=== PATIENT | male | born 1940 | race Asian ===

== ENCOUNTER 2016-10-14 11:23 | Inpatient (IN) | payer OTHER, MEDICARE ==
--- NOTE | 2016-10-14 11:37 | CPEKG ---
Heart Rate: 105 RR Interval: 571 P-R Interval: 140 QRSD Interval: 82 QT Interval: 368 QTC Interval: 487 P [place]: 52 QRS [place]: 26 T Wave [place]: -8 EKG Severity - ABNORMAL ECG - EKG Impression: SINUS TACHYCARDIA EKG Impression: INFERIOR INFARCT, AGE INDETERMINATE EKG Impression: ANTEROLATERAL INFARCT, AGE INDETERMINATE EKG Impression: BORDERLINE PROLONGED QT INTERVAL Electronically Signed By: Devin Covarrubias 14-Oct-2016 15:39:10
--- NOTE | 2016-10-14 12:03 | EDPHY ---
H & P Time Seen by Provider: 10/14/16 11:38 HPI/ROS: Chief complaint. Syncope, seizure HPI. 76-year-old male presents emergency department by EMS after having a syncopal episode while [place] [employer] He was crossing the finish line. He had been pushing himself to get a good time. The next thing he knew was lying on the ground with EMS. He had no preceding chest discomfort shortness of breath or abdominal pain. He does not recall the episode. His right facial swelling and abrasion to right knee. He also tells me he felt well during the run. Per EMS blood pressure has been low. He has a history of hypertension and diabetes. No previous syncope. He has bloody nose. No neck pain. No visual change ROS Constitutional. no fever/chills, no weakness Eyes. Swelling around right eye ENT. Bilateral epistaxis without septal hematoma. No oral trauma Cardiovascular. no chest pain Respiratory. no shortness of breath, no cough Abdominal. no abdominal pain, no nausea/vomiting, no diarrhea . no problems urinating facial swelling MS. no calf pain/swelling, no neck/back pain, no joint pain Skin. no rash Lymph. no swollen glands Neuro. Syncope Past Medical/Surgical History: Past medical history hypertension, diabetes Social History: , nonsmoker no alcohol Smoking Status: Never smoked Physical Exam: General Appearance: Alert well-developed male mild distress vital signs significant for heart rate 103 and blood pressure 80/ 58 Eyes: Pupils equal round reactive. Right periorbital hematoma. ENT, no hemotympanum or Stokes sign. No septal hematoma. No oral pharyngeal trauma. Respiratory: There are no retractions, lungs are clear to auscultation. Cardiovascular: Regular rate and rhythm. Gastrointestinal: Abdomen is soft and nontender, no masses, bowel sounds normal. Neurological: Awake and alert, sensory and motor exams grossly normal. Skin: Warm and dry, no rashes. Musculoskeletal: Neck is supple nontender. Extremities abrasion right knee Psychiatric: Patient is oriented X 3, there is no agitation. Constitutional: Initial Vital Signs Temperature (C) 36.6 C 10/14/16 11:25 Heart Rate 103 H 10/14/16 11:25 Respiratory Rate 16 10/14/16 11:25 Blood Pressure 80/58 L 10/14/16 11:25 O2 Sat (%) 96 10/14/16 11:25 O2 Delivery Mode Room Air Allergies/Adverse Reactions: No Known Allergies Allergy (Unverified 10/14/16 11:29) Home Medications: Medication Instructions Recorded Fenofibrate Nanocrystallized 145 mg PO HS 10/14/16 [Fenofibrate] Ibuprofen [Motrin (*)] 200 mg PO DAILY PRN 10/14/16 Lisinopril [Lisinopril] 10 mg PO HS 10/14/16 Pravastatin Sodium [Pravastatin 20 mg PO HS 10/14/16 Sodium] Medical Decision Making - Diagnostics EKG Interpretation: EKG interpreted by me shows sinus tachycardia. Normal interval. Possible old inferior ND. No significant ST elevation or depression. No arrhythmia. Rate 105 Imaging Results: Imaging Impressions Chest X-Ray 10/14/16 12:20 Impression: Clear lungs. Negative portable chest. Head CT 10/14/16 12:21 Impression: 1. No acute intracranial hemorrhage or skull fracture. 2. Right orbital floor fracture (no inferior rectus muscle entrapment). 3. Cerebral atrophy. Findings discussed with Emergency Department physician, Dr. Devin Covarrubias on October 14, 2016 at 1305 hours. Chest x-ray interpreted by me is normal CT head shows no evidence of skull fracture or intracranial bleeding. Patient has right orbital floor fracture with subcutaneous emphysema Procedures: IV normal saline patient given 2 L of saline, monitor ED Course/Re-evaluation: 12:55 p.m. blood pressure is 100/73 Re-evaluation 1:20 p.m.--patient is stable. Blood pressure improved with systolic of 102. Patient, his and I discussed imaging study results, lab an EKG findings. We discussed treatment plan including recommendation for admission. They expressed understanding and agreement I have consulted and discussed the case with Dr. Olivia, ENT, who will see the patient in the hospital I have consulted and discussed the case with Dr. Coyle, hospitalist who agrees to the admission will see the patient in the emergency department. Differential Diagnosis: Patient hypotensive and had syncope without prodrome symptoms. I have considered arrhythmia, CVA. I also considered trauma to his face from his fall and he has a right orbital floor fracture. This could be dehydration syncope or arrhythmia and acute coronary syndrome - Data Points Laboratory Results: Laboratory Results 10/14/16 11:25 10/14/16 11:25 10/14/16 10/14/16 10/14/16 11:25 11:25 11:25 WBC 11.49 10^3/uL H 10^3/uL (3.80-9.50) RBC 4.78 10^6/uL 10^6/uL (4.40-6.38) Hgb 15.2 g/dL g/dL (13.7-17.5) Hct 45.6 % % (40.0-51.0) MCV 95.4 fL fL (81.5-99.8) MCH 31.8 pg pg (27.9-34.1) MCHC 33.3 g/dL g/dL (32.4-36.7) RDW 12.1 % % (11.5-15.2) Plt Count 323 10^3/uL 10^3/uL (150-400) MPV 9.8 fL fL (8.7-11.7) Neut % (Auto) 49.0 % % (39.3-74.2) Lymph % (Auto) 37.2 % % (15.0-45.0) Archer % (Auto) 8.4 % % (4.5-13.0) Eos % (Auto) 3.8 % % (0.6-7.6) Baso % (Auto) 1.0 % % (0.3-1.7) Nucleat RBC Rel Count 0.0 % % (0.0-0.2) Absolute Neuts (auto) 5.62 10^3/uL 10^3/uL (1.70-6.50) Absolute Lymphs (auto) 4.27 10^3/uL H 10^3/uL (1.00-3.00) Absolute Monos (auto) 0.97 10^3/uL H 10^3/uL (0.30-0.80) Absolute Eos (auto) 0.44 10^3/uL H 10^3/uL (0.03-0.40) Absolute Basos (auto) 0.12 10^3/uL H 10^3/uL (0.02-0.10) Absolute Nucleated RBC 0.00 10^3/uL 10^3/uL (0-0.01) Immature Gran % 0.6 % % (0.0-1.1) Immature Gran # 0.07 10^3/uL 10^3/uL (0.00-0.10) PT 13.1 SEC SEC (12.0-15.0) INR 1.00 (0.83-1.16) APTT 24.5 SEC SEC (23.0-38.0) Sodium 139 mEq/L mEq/L (134-144) Potassium 5.2 mEq/L mEq/L (3.5-5.2) Chloride 102 mEq/L mEq/L (97-110) Carbon Dioxide 17 mEq/l L mEq/l (22-31) Anion Gap 20 mEq/L H mEq/L (8-16) BUN 29 mg/dL H mg/dL (7-23) Creatinine 1.7 mg/dL H mg/dL (0.7-1.3) Estimated GFR 39 Glucose 158 mg/dL H mg/dL (70-100) Calcium 10.4 mg/dL mg/dL (8.5-10.4) Troponin I 0.020 ng/mL ng/mL (0-0.034) Medications Given: Discontinued Medications Amoxicillin/Clavulanate Potassium (Augmentin 875mg) 875 mg PO EDNOW ONE PRN Reason: Protocol Stop: 10/14/16 13:45 Last Admin: 10/14/16 14:21 Dose: 875 mg Sodium Chloride (Ns) 1,000 mls @ 0 mls/hr IV ONCE ONE PRN Reason: Wide Open Stop: 10/14/16 12:21 Last Admin: 10/14/16 12:28 Dose: 1,000 mls Departure - Departure Disposition: [facility] Inpatient Acute Clinical Impression: Syncope and collapse, Facial fracture due to fall Hypotension Qualifiers: Hypotension type: unspecified hypotension type Qualified Code(s): I95.9 - Hypotension, unspecified Condition: Fair
[2016-10-14] MEDS ORDERED: NS 1,000 ML IV ONE (12:20)
[2016-10-14 12:27] LABS: % IMMATURE GRANULYOCYTES 0.6 % (0.0-1.1); ABSOLUTE IMMATURE GRANULOCYTES 0.07 10^3/uL (0.00-0.10); ADD DIFF? NO; ADD MORPH? NO; ADD SCAN? NO; ATYPICAL LYMPHOCYTE FLAG 0 (0-99); FRAGMENT RBC FLAG 0 (0-99); HEMATOCRIT 45.6 % (40.0-51.0); HEMOGLOBIN 15.2 g/dL (13.7-17.5); LEFT SHIFT FLG 0 (0-99); LIPEMIA HEMOLYSIS FLAG 80 (0-99); MEAN CELL HEMOGLOBIN 31.8 pg (27.9-34.1); MEAN CELL HEMOGLOBIN CONCENTR. 33.3 g/dL (32.4-36.7); MEAN CELL VOLUME 95.4 fL (81.5-99.8); MEAN PLATELET VOLUME 9.8 fL (8.7-11.7); PLATELET CLUMPS FLAG 0 (0-99); PLATELET COUNT 323 10^3/uL (150-400); RED BLOOD CELL COUNT 4.78 10^6/uL (4.40-6.38); RED CELL DISTRIBUTION WIDTH 12.1 % (11.5-15.2)
[2016-10-14 12:30] LABS: PROTIME(PATIENT) 13.1 SEC (12.0-15.0)
[2016-10-14 12:31] LABS: APTT 24.5 SEC (23.0-38.0)
[2016-10-14 12:32] LABS: ANION GAP 20 mEq/L (8-16); CALCIUM 10.4 mg/dL (8.5-10.4); CARBON DIOXIDE 17 mEq/l (22-31); CHLORIDE 102 mEq/L (97-110); CREATININE 1.7 mg/dL (0.7-1.3); GLOMERULAR FILTRATION RATE 39; GLUCOSE 158 mg/dL (70-100); POTASSIUM 5.2 mEq/L (3.5-5.2); SODIUM 139 mEq/L (134-144)
[2016-10-14] MEDS ORDERED: AMOXICILLIN/CLAVULANATE POT 875/125 MG TAB PO ONE (13:44)
[2016-10-14] MEDS ORDERED: ACETAMINOPHEN 325 MG TAB PO PRN (14:27)
[2016-10-14] MEDS ORDERED: ONDANSETRON DISINTEGRATING 4 MG TAB PO PRN (14:27)
[2016-10-14] MEDS ORDERED: NS 1,000 ML IV SCH (14:30)
--- NOTE | 2016-10-14 15:00 | GHP ---
[f rep st] HISTORY AND PHYSICAL DATE OF ADMISSION: 10/14/2016 CHIEF COMPLAINT: Syncope. HISTORY OF PRESENT ILLNESS: This is a 76-year-old male with a history of hypertension and hyperlipi demia. He was running in [place] [employer] and pushed himself quite hard at the end to improve his time. Right when he passed the finish line, he had a syncopal episode and hit his face. He does h ave an orbital blowout fracture on the right. The patient denies any chest pain. He denies any pal pitations prior to that or even in the past. He is denying any shortness of breath. His blood pres sure was low when he came in and is now better. REVIEW OF SYSTEMS: A 10-point review of systems was obtained and other than stated above was negati ve. PAST MEDICAL HISTORY: Hypertension, hyperlipidemia. MEDICATIONS: Lisinopril, TriCor, pravastatin. SOCIAL HISTORY: No smoking. Occasional alcohol. He is retired. FAMILY HISTORY: No early history of coronary artery disease. PHYSICAL EXAM: VITAL SIGNS: Afebrile. Blood pressure was /58 with a heart rate 103, it is down to 110s/70 with heart rate in the 70s. GENERAL: The patient is well-developed, no apparent distress. HEENT: Nonicteric sclerae. Extraocular muscles intact. He does have right orbital swe lling. Dry mucous membranes. NECK: Supple. No thyromegaly. LUNGS: Good effort. Clear to auscu ltation bilaterally. CARDIOVASCULAR: Regular rate and rhythm. No murmurs or gallops. ABDOMEN: P ositive bowel sounds. Soft, nontender, nondistended. No hepatosplenomegaly. EXTREMITIES: No club joan, cyanosis, or edema. SKIN: Without rash. Dry, intact. NEUROLOGIC: Moving all 4 extremities equally. PSYCH: Normal mood and affect. LABS: White count slightly elevated at 11. Sodium 139, potassium 5.2, BUN 29, creatinine 1.7, anio n gap of 20. EKG, personally reviewed and interpreted, shows inferior Q-waves and sinus tachycardia. CT scan of the head shows orbital blowout fracture on the right. Chest x-ray, personally reviewed and interpreted, is clear. ASSESSMENT AND PLAN: This is a 76-year-old male presenting with syncopal episode after 10 K run. 1. Syncope. This is probably due to dehydration and overexertion. His labs and vital signs are co nsistent with dehydration. We will continue with IV fluids. He does have Q-waves on the EKG. We w ill probably check another troponin in the morning, although it would be hard to interpret after sig nificant exertion. 2. Hypertension. We will hold his lisinopril. 3. Hyperlipidemia. 4. Right orbital blowout fracture. We will continue Augmentin. He can follow up with ENT. /[id number]/MODL
[2016-10-15 05:01] LABS: % IMMATURE GRANULYOCYTES 0.5 % (0.0-1.1); ABSOLUTE IMMATURE GRANULOCYTES 0.04 10^3/uL (0.00-0.10); ADD DIFF? NO; ADD MORPH? NO; ADD SCAN? NO; ATYPICAL LYMPHOCYTE FLAG 0 (0-99); FRAGMENT RBC FLAG 0 (0-99); HEMATOCRIT 35.8 % (40.0-51.0); HEMOGLOBIN 12.1 g/dL (13.7-17.5); LEFT SHIFT FLG 0 (0-99); LIPEMIA HEMOLYSIS FLAG 90 (0-99); MEAN CELL HEMOGLOBIN 32.4 pg (27.9-34.1); MEAN CELL HEMOGLOBIN CONCENTR. 33.8 g/dL (32.4-36.7); MEAN PLATELET VOLUME 9.4 fL (8.7-11.7); PLATELET CLUMPS FLAG 0 (0-99); PLATELET COUNT 200 10^3/uL (150-400); RED BLOOD CELL COUNT 3.73 10^6/uL (4.40-6.38); RED CELL DISTRIBUTION WIDTH 12.4 % (11.5-15.2)
[2016-10-15 05:02] LABS: ALANINE AMINOTRANSFERASE 39 IU/L (21-72); ALBUMIN 3.4 g/dL (3.5-5.0); ALKALINE PHOSPHATASE 31 IU/L (38-126); ANION GAP 7 mEq/L (8-16); ASPARTATE AMINOTRANSFERASE 52 IU/L (17-59); BILIRUBIN,TOTAL 1.1 mg/dL (0.1-1.4); CALCIUM 8.5 mg/dL (8.5-10.4); CARBON DIOXIDE 22 mEq/l (22-31); CHLORIDE 109 mEq/L (97-110); GLOMERULAR FILTRATION RATE > 60; GLUCOSE 111 mg/dL (70-100); POTASSIUM 4.8 mEq/L (3.5-5.2); SODIUM 138 mEq/L (134-144); TOTAL PROTEIN 6.1 g/dL (6.3-8.2)
[2016-10-15 05:13] LABS: TROPONIN I 0.696 ng/mL (0-0.034)
[2016-10-15] MEDS: AMOXICILLIN/CLAVULANATE POT 875/125 MG TAB PO SCH ×2 (10:00→20:46)
--- NOTE | 2016-10-15 12:07 | GCON ---
[f rep st] CONSULTATION HISTORY OF PRESENT ILLNESS: This is a 76-year-old male with a history of hypertension and hyperlipi demia. He was [place] and pushed himself quite hard at the end to improve hi s time. Right as he was crossing the finish line he had a syncopal episode on his face. The patien t underwent a CT scan on admission to the emergency room and was found to have a right orbital floor fracture. He was admitted for workup of his syncope. ENT is consulted for management of his right orbital floor fracture. The patient denies any double vision. At this point, he has no pain, he h as no bleeding. No facial numbness. PHYSICAL EXAMINATION: GENERAL: A 76-year-old male, in no acute distress, sitting up at the bedside . HEAD AND FACE: He does have mild edema infraorbitally on the right. Extraocular movements are i ntact. No septal hematoma. IMAGING PROCEDURE: CT scan of the head was reviewed with the patient. It does show a blowout fract ure of the orbital floor on the right. There is no entrapment. ASSESSMENT AND PLAN: This is a 76-year-old male who presents with a syncopal episode as well as fac ial trauma. He sustained a right orbital floor fracture. Dr. Olivia discussed the options with th e patient, which do include conservative management at this time versus operative intervention. The patient is traveling to [place] in several days and he will decide if he wants to intervene prio r to that. The patient was instructed to call our office, , on discharge in order to se t up followup. The patient will either follow up prior to his trip to [place] and delay it, or f ollow up after his trip. We did discuss with the patient the risk of scar formation causing muscle entrapment, causing vertical gaze diplopia. The patient understands treatment options and he will c all our office to follow up. Thank you so much for allowing us to participate in the care of this patient. If you have any furth er questions, please do not hesitate to contact our office. Patient was seen and examined by myself, as well as Dr. Olivia. Dr. Olivia does agree [facility] the [facility] and plan. /[id number]/MODL
--- NOTE | 2016-10-15 12:46 | PDCARST ---
CAR Stress Test Results Type of Stress Test: nuclear TM stress test Indication: syncope Description of Procedure: After informed consent was obtained, pt was exercised according to Kenneth Protocol. Monitoring was performed with standard stress pump tester electrode placement. Vital signs were monitored according to protocol throughout the procedure. STRESS EKG AND HEMODYNAMIC DATA. Exercise time: 4: 18 min. This is equivalent to: 5.5 METS. Resting heart rate: 75 bpm. Resting blood pressure: 140/74 mmHg. Resting O2 saturation: 97%. Peak heart rate: 140 bpm. This is 96% of age predicted maximum heart rate response. Peak blood pressure: 160/100 mmHg. Arrhythmias: rare PVCs in recovery. Reason for termination: The test was stopped due to ECG changes. Symptoms: The patient experienced no typical symptoms of angina during stress or recovery. STRESS TEST ANALYSIS. Baseline ECG: SR with ant/lat Qs. Stress ECG: SR with 2 mm horizontal STD. exercise induced ischemic ECG changes: Yes. Rhythm: rare PVCs in recovery. Blood pressure: acceptable blood pressure response to exercise. Exercise tolerance: The patient has decreased exercise tolerance adjusted for age and gender. Symptoms: dyspnea on exertion Impression: IMPRESSIONS: Stress ECG highly suggestive of ischemia. The Krishnamurthy Treadmill Score is -6 (intermediate risk) Conclusion: Cardiology will be consulting and likely pt will require invasive evaluation.
[2016-10-15] MEDS ORDERED: HEPARIN 10,000 UNIT/10 ML MDV IVP PRN (14:02)
[2016-10-15] MEDS ORDERED: HEPARIN 10,000 UNIT/10 ML MDV IVP ONE (14:02)
[2016-10-15] MEDS ORDERED: HEPARIN/DEXTROSE 500 ML IV SCH (14:15)
[2016-10-15 14:34] LABS: % IMMATURE GRANULYOCYTES 0.5 % (0.0-1.1); ABSOLUTE IMMATURE GRANULOCYTES 0.04 10^3/uL (0.00-0.10); ADD DIFF? NO; ADD MORPH? NO; ADD SCAN? NO; ATYPICAL LYMPHOCYTE FLAG 0 (0-99); FRAGMENT RBC FLAG 0 (0-99); HEMATOCRIT 41.3 % (40.0-51.0); HEMOGLOBIN 13.7 g/dL (13.7-17.5); LEFT SHIFT FLG 0 (0-99); LIPEMIA HEMOLYSIS FLAG 80 (0-99); MEAN CELL HEMOGLOBIN 32.1 pg (27.9-34.1); MEAN CELL HEMOGLOBIN CONCENTR. 33.2 g/dL (32.4-36.7); MEAN CELL VOLUME 96.7 fL (81.5-99.8); MEAN PLATELET VOLUME 9.4 fL (8.7-11.7); PLATELET CLUMPS FLAG 10 (0-99); PLATELET COUNT 218 10^3/uL (150-400); RED BLOOD CELL COUNT 4.27 10^6/uL (4.40-6.38); RED CELL DISTRIBUTION WIDTH 12.4 % (11.5-15.2)
--- NOTE | 2016-10-15 14:35 | HOSPPROG ---
Hospitalist Progress Note Assessment/Plan: * syncope * Probably related to dehydration but now appears to have cardiac disease * mild troponin elevation with inferior Q-waves * Had stress test this morning which he failed. There is some ischemia on the images as well * Will be going to tree [employer] I believe today * hypertension * Probably will need to start beta-aljeandra and so will not restart lisinopril which should probably be started at a lower dose Subjective: Feels pretty good. No chest pain Objective: Vital Signs Temp Pulse Resp BP Pulse Ox 36.6 C 67 16 144/80 H 97 10/15/16 07:32 10/15/16 07:32 10/15/16 07:32 10/15/16 07:32 10/15/16 07:32 Laboratory Results 10/15/16 04:20 10/14/16 10/15/16 10/16/16 05:59 05:59 05:59 Intake Total 3180 Balance 3180 PT 13.1 SEC (12.0-15.0) 10/14/16 11:25 INR 1.00 (0.83-1.16) 10/14/16 11:25 Discussed with Cardiology - Physical Exam Constitutional: no apparent distress, appears nourished, not in pain Eyes: anicteric sclera, EOMI Ears, Nose, Mouth, Throat: moist mucous membranes, hearing normal Cardiovascular: regular rate and rhythym, no murmur, rub, or gallop Respiratory: no respiratory distress, no rales or rhonchi, clear to auscultation Gastrointestinal: normoactive bowel sounds, soft, non-tender abdomen, no palpable masses Skin: warm Neurologic: AAOx3 Psychiatric: interacting appropriately, not anxious, not encephalopathic, thought process linear ICD10 Worksheet Patient Problems: Problems Problem Status Onset Facial fracture due to fall Acute Hypotension Acute Syncope and collapse Acute
[2016-10-15 14:43] LABS: INR 1.03 (0.83-1.16); PROTIME(PATIENT) 13.4 SEC (12.0-15.0)
[2016-10-15 14:44] LABS: APTT 25.8 SEC (23.0-38.0)
--- NOTE | 2016-10-15 15:07 | GCON ---
[f rep st] CONSULTATION CARDIOVASCULAR CONSULTATION CHIEF COMPLAINT: Syncope. The patient passed out while running the [email or web address]. He normally runs the [email or web address] in about 16-minute miles. He noted he was a little bit faster t [place] normal by 10, 15, 20 seconds per mile, and he decided to try to keep going at that pace, which [place] did. When he got to the stadium and was going to try to sprint for the last trip around the stadi um, he blacked out at the finish line. He also felt like he could not increase his pace at the [employer] the way he normally does. He had no chest pain or shortness of breath. No pleuritic chest pain. No lightheadedness, dizziness. No stiff neck, sore throat, photophobia. No trauma of the head, neck, or chest except when he passed out. He had no trouble before the race. He did train for the race, had even run 6 miles once and did fine with that. He has not had any episodes of chest discomfort. He has had no upper respiratory tract symptoms. N o cough, no sputum production. No arthralgias, fevers, chills. No nausea, vomiting, diarrhea, or constipation. No symptoms of rigors. He has had no history of rheumatic disease, claudication, or cerebrovascular disease. No hemoptysis or tuberculosis. CARDIAC RISK FACTORS: Positive for hypertension, diabetes mellitus, and hyperlipidemia. Cardiac risk factors negative for hyperuricemia, smoking, family history of premature coronary arter y disease, known coronary artery disease or obesity. PAST MEDICAL HISTORY: REVIEW OF SYSTEMS: A 12-point review of systems was negative except as noted here. 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 He had polio and it affected his right side. His right hand is more affected than the right lower extremity. FAMILY HISTORY: No family history of premature coronary artery disease. No history of unexplained sudden at a young age. SOCIAL HISTORY: He was born in [place], [place]. He went to high school near [facility]. 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 They have 1 child, a daughter, in . [place] nt[place], they have been in [place] for 4 years. 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 He had been in [place] once before doing the same work. He exercises on a regular basis. Does not drink signific ant amounts of alcohol. MEDICATIONS: Lisinopril, TriCor, pravastatin. ALLERGIES: None. PHYSICAL EXAMINATION: VITAL SIGNS: His blood pressure was 135/70, heart rate 66, respiratory rate 12, afebrile. HEENT: Has right orbital swelling from trauma from falling. NECK: Supple. CARDIOV ASCULAR: S1, S2. Soft systolic murmur at the left sternal border. No diastolic murmur. No S3, S4 . No rubs. PULMONARY: Rhonchi bilaterally. No rales, wheezing or dullness. ABDOMEN: Soft, nont walt, without masses. EXTREMITIES: No edema, inflammation or ulceration. Right upper extremity i s affected by polio. SKIN: Age-related changes. PSYCH: No obvious anxiety or depression. NEUROLOGIC: As noted. DIAGNOSTIC STUDIES: Chest x-ray is negative. CT scan of the head shows an orbital blowout fracture on the right side. EKG shows sinus tachycardia, interventricular conduction delay and T-wave inversion in V3, V4. ASSESSMENT AND PLAN: 1. Syncope. 2. History of polio. 3. Hypertension. 4. Diabetes mellitus. 5. Hyperlipidemia. 6. Abnormal stress test. 7. The patient had syncope at the finish line of the [facility]. I am very worried about ventricul ar arrhythmia. He certainly could be ischemic as well. His EKG was abnormal and a stress test was also abnormal. I am going to put him on heparin and beta-alejandra. We are going to do a coronary angiogram in the [facility]. He has had absolutely no chest pain or chest tightness. Will order an echocardiographic study and will follow him very closely. I spent 20 minutes talking to him and his about angiograms and other options, and they would li ke to proceed. In the meantime, we will watch very carefully his blood pressure, diabetes, and cholesterol are real ly managed perfectly because we really do not want to deal with future coronary artery disease. I will do a coronary angiogram, will see what we find for results, and consider having electrophysio logy service see him as well in the morning. All their questions have been answered. /[id number]/MODL
--- NOTE | 2016-10-15 15:46 | ECHO ---
[id number] + + [address] : : [place] [address] : : [phone] + + Adult Echocardiographic Report + ---+ :Name: Jeffrey ARNOLD Date: 10/15/2016 02:19 PM : : Hospital Admission Number: [id number] Location: 343: :: 1940 Gender: Male Height: 63 in : :Age: 76 yrs Race: Weight: 145 lb : :Reason For Study: Syncope : : BSA: 1.7 meters2 : + ---+ MMode/2D Measurements \T\ Calculations IVSd: 1.2 cm LVIDd: 4.6 cm FS: 31.9 % MV Diam: 3.0 cm LVPWd: 0.91 cm LVIDs: 3.1 cm EDV(Teich): 95.0 ml ESV(Teich): 38.0 ml EF(Teich): 60.0 % Ao root diam: LVOT diam: 2.1 cmLVLd ap4: 8.8 cm SV(MOD-sp4): 3.8 cm LVOT area: EDV(MOD-sp4): 60.0 ml LA dimension: 3.3 cm2 95.0 ml 4.1 cm LVLs ap4: 7.3 cm ESV(MOD-sp4): 35.0 ml EF(MOD-sp4): 63.2 % Normal Measurement Values: + + :LVIDd (3.5-5.7cm) IVSd (0.6-1.1cm) LVPWd (0.6-1.1cm) Aortic Root (2.0-3.7cm)Left Atrium (1.5-4.0cm): :LV Vol(d) (76-115ml) LV Vol(s) (29-48ml) Ejec Fraction (50-65%)PV Ruben (0.6- 1.2m/s) TV Ruben (0.4-1.0m/s) : :MV E Ruben (0.8-1.0m/s)MV A Ruben (0.3-1.0m/s)LVOT Ruben (0.7-1.2m/s) Asc Ao Ruben ( 0.9-1.8m/s) : + + Doppler Measurements \T\ Calculations MV E max ruben: MV V2 max: Ao V2 max: AI max ruben: 109.6 cm/sec 120.8 cm/sec 130.3 cm/sec 419.2 cm/sec MV A max ruben: MV max P.8 mmHg Ao max PG: AI max P.0 cm/sec MV V2 mean: 6.8 mmHg 70.3 mmHg MV E/A: 0.94 83.7 cm/sec Ao mean PG: AI dec slope: MV mean P.7 mmHg 349.8 cm/sec2 3.0 mmHg Ao V2 mean: AI P1/2t: MV V2 VTI: 37.7 cm 89.1 cm/sec 350.9 msec MV area (1 diam): Ao V2 VTI: 6.9 cm2 26.7 cm SILVANA(I,D): 2.5 cm2 MVA(VTI): 1.8 cm2 MV Flow area (1diam): 6.9 cm2 LV V1 mean PG: MR max ruben: MR(RF 1 diam): SV(MV 1 diam): 1.8 mmHg 503.5 cm/sec 2.0 % 259.2 ml LV V1 mean: MR max PG: SI(MV 1 diam): 61.8 cm/sec 101.4 mmHg 153.6 ml/m2 LV V1 VTI: 19.8 cm SV(LVOT): 66.3 ml TR max ruben: RF(MV,Ao)(1 diam): 315.8 cm/sec -0.18 TR max PG: RF(MV,LVOT)(1diam): 39.9 mmHg 0.74 RAP systole: 5.0 mmHg RVSP(TR): 44.9 mmHg Left Ventricle The left ventricle is normal in size and function. There is normal left ventricular wall thickness. Left ventricular systolic function is normal. Ejection Fraction = 60-65%. No regional wall motion abnormalities noted. Right Ventricle The right ventricle is normal in size and function. Atria The left atrium is mildly dilated. Right atrial size is normal. The interatrial septum is intact with no evidence for an atrial septal defect. Mitral Valve Mildly calcified anterior mitral leaflet. There is no evidence of mitral valve prolapse. There is no mitral valve stenosis. There is mild to moderate mitral regurgitation. Tricuspid Valve Normal tricuspid valve. There is trace to mild tricuspid regurgitation. Right ventricular systolic pressure is 40-45mmHg. There is Doppler evidence for mild pulmonary hypertension. Aortic Valve The aortic valve is trileaflet. The aortic valve opens well. Mild aortic calcification. There is no aortic stenosis. Mild aortic regurgitation. Pulmonic Valve The pulmonic valve is normal in structure and function. Mild pulmonic valvular regurgitation. Great Vessels The aortic root is normal size. Pericardium/Pleural There is no pericardial effusion. Conclusion A complete two-dimensional transthoracic echocardiogram was performed (2D, M-mode, Doppler and color flow Doppler). The left ventricle is normal in size and function. Left ventricular systolic function is normal. Ejection Fraction = 60-65%. The left atrium is mildly dilated. Mildly calcified anterior mitral leaflet. There is mild to moderate mitral regurgitation. There is trace to mild tricuspid regurgitation. Right ventricular systolic pressure is 40-45mmHg. There is Doppler evidence for mild pulmonary hypertension. Mild aortic calcification. Mild aortic regurgitation. Mild pulmonic valvular regurgitation. Final Reading Physician: Dwayne Navaronicran signed on 10/15/2016 03:44 PM Ordering Physician: Shemar Traore Performed By: Chrissy Ortega RDCS
--- NOTE | 2016-10-15 16:23 | GHP ---
[f rep st] HISTORY AND PHYSICAL DATE OF ADMISSION: 10/14/2016 The patient is a 76-year-old male who was brought in to the emergency room yesterday after a faintin g episode which occurred after a race in which he ran 10 km. He struck his face and was noted to [place] ve an orbital fracture on preadmission CAT scanning. The patient does not describe any visual patel es or diplopia and there is no paresthesia noted on questioning. Past medical history is not contributory. The patient seems otherwise healthy. For allergies and m edications please see chart. Past surgical history is not contributory. Review of systems is not c ontributory. On physical examination, the patient is a 76-year-old gentleman who is comfortable and in no acute d istress. HEENT examination reveals mild swelling and minimal ecchymosis around the right periorbita l region with no paresthesia at the right cheek noted. The patient does not have any on the orbital rim on the right side, and the remainder of his comprehensive head and neck exam is othe rwise unremarkable. CAT scan was reviewed which does reveal a small mid orbital floor isolated fracture with a small ___ type effect. The remainder of the CAT scan does not reveal any other evidence of trauma. T he soft tissue of the orbit does not fall into the fracture line on the examination, and there is ac tually an air bubble sitting above the fracture line holding the soft tissue up out of the fracture line on the CAT scan. It is my impression that the patient is a 76-year-old gentleman who had a syncopal episode, who has an isolated right orbital floor fracture. The plan: I have had a lengthy discussion with the patient regarding the possibility of doing open reduction with orbital implant to help treat his fracture of the orbital floor, and we have discusse d the possibility also of doing nothing and observing him for the next few months to see if he devel ops any signs of scarring issues or entrapment. Given his lack of symptoms at this time and the sma ll nature of the fracture, we may undergo a period of observation here although he is still consider ing his options, and he will get back to me over the next 24-48 hours regarding whether or not he fe els comfortable with observation versus surgical correction. We have discussed the risks and benefi ts of both options at length, and I have answered his questions during today's consultation. /[id number]/MODL
[2016-10-15] MEDS: ASPIRIN 325 MG TAB PO SCH (20:46)
[2016-10-15] MEDS: PRAVASTATIN SODIUM 20 MG TAB PO SCH (20:47)
[2016-10-15] MEDS: METOPROLOL TARTRATE 25 MG TAB PO SCH (20:54)
[2016-10-16] MEDS: AMOXICILLIN/CLAVULANATE POT 875/125 MG TAB PO SCH ×2 (08:32→20:35)
[2016-10-16] MEDS: ASPIRIN 325 MG TAB PO SCH (08:33)
[2016-10-16] MEDS: METOPROLOL TARTRATE 25 MG TAB PO SCH ×2 (08:33→20:35)
[2016-10-16] MEDS ORDERED: DIAZEPAM 5 MG TAB PO ONE (10:22)
[2016-10-16] MEDS ORDERED: diphenhydrAMINE 25 MG CAP PO ONE ×2 (10:22→10:26)
[2016-10-16] MEDS ORDERED: FAMOTIDINE 20 MG TAB PO ONE (10:22)
[2016-10-16] MEDS ORDERED: NS 1,000 ML IV ONE ×2 (10:22→17:30)
[2016-10-16] MEDS ORDERED: FAMOTIDINE 20 MG TAB ONE (10:26)
[2016-10-16] MEDS ORDERED: DIAZEPAM 5 MG TAB ONE (10:27)
[2016-10-16] MEDS ORDERED: LIDOCAINE 1% 300 MG/30 ML SDV ONE (10:46)
[2016-10-16] MEDS ORDERED: fentaNYL 100 MCG/2 ML INJ ONE ×2 (10:46→13:41)
[2016-10-16] MEDS ORDERED: MIDAZOLAM 2 MG/2 ML VIAL ONE ×2 (10:47→13:41)
[2016-10-16] MEDS ORDERED: IOPAMIDOL (ISOVUE-370) 150 ML BTL IV ONE (10:47)
[2016-10-16] MEDS ORDERED: IOPAMIDOL (ISOVUE-300) 150 ML BTL ONE (14:31)
[2016-10-16] MEDS ORDERED: ONDANSETRON 4 MG/2 ML VIAL IVP PRN (15:16)
[2016-10-16] MEDS ORDERED: ATROPINE SULFATE 1 MG/10 ML SYR IVP PRN (15:16)
[2016-10-16] MEDS ORDERED: NITROGLYCERIN 0.4 MG BTL SL PRN (15:16)
[2016-10-16] MEDS ORDERED: OXYCODONE/APAP 5/325 TAB PO PRN (15:16)
--- NOTE | 2016-10-16 15:32 | CPIP ---
[f rep st] INVASIVE CARDIAC PROCEDURE PROCEDURES: 1. Left heart catheterization. 2. Left ventriculogram. 3. Left and right coronary arteriogram. The patient gave informed consent for this procedure, and we proceeded without any complications. The left main coronary artery has a 20% to 30% stenosis present. The left anterior descending artery has an 85% to 90% stenosis just prior to a large poststenotic an eurysmal dilatation. In some views, this aneurysmal dilatation appears to also affect the 1st diago nal branch of the LAD. The 1st diagonal branch of the LAD has an 85% proximal stenosis and a postst enotic dilatation as well. The mid LAD has a 40% stenosis. The circumflex after the 2nd obtuse marginal branch has a 70% stenosis. OM-2 has an 80% proximal st enosis. The right coronary artery is codominant and has a 95% proximal stenosis. There is 90% distal RCA st enosis. LEFT HEART CATHETERIZATION: Left ventricular end-diastolic pressure equals 33 mmHg pre and post lef t ventriculogram. Left ventriculogram showed anterolateral hypokinesis, apical hypokinesis, and an ejection fraction e stimated at 45%. COMPLICATIONS: None. CONDITION AT END OF STUDY: Excellent. RECOMMENDATION: The films have been reviewed, and the recommendation is for coronary artery bypass grafting. We will obtain a cardiothoracic surgery consultation. /[id number]/MODL
--- NOTE | 2016-10-16 16:45 | HOSPPROG ---
Hospitalist Progress Note Assessment/Plan: 36-year-old male who had a syncopal episode at the finish line of the [facility] * triple-vessel coronary disease * CABG planned for Friday or Friday * continue aspirin, beta-alejandra, statin * syncope * due to dehydration and possible arrhythmia * hypertension * on beta-alejandra could probably restart DANISH inhibitor at a smaller dose at some point * orbital blowout fracture * continue Augmentin for around 7 days I believe * ENT has seen the patient Subjective: no new complaints. Heart catheterization results reviewed Objective: Vital Signs Temp Pulse Resp BP Pulse Ox 36.5 C 59 L 14 141/91 H 95 10/16/16 16:30 10/16/16 16:30 10/16/16 16:30 10/16/16 16:30 10/16/16 16:30 10/15/16 10/16/16 10/17/16 05:59 05:59 05:59 Intake Total 700 Balance 700 PT 13.4 SEC (12.0-15.0) 10/15/16 14:18 INR 1.03 (0.83-1.16) 10/15/16 14:18 tele personally viewed interpreted normal sinus rhythm discussed with Cardiology - Physical Exam Constitutional: no apparent distress, appears nourished, not in pain Eyes: anicteric sclera, EOMI Ears, Nose, Mouth, Throat: moist mucous membranes Cardiovascular: regular rate and rhythym, no murmur, rub, or gallop Respiratory: no respiratory distress, no rales or rhonchi, clear to auscultation Skin: warm Neurologic: AAOx3 Psychiatric: interacting appropriately, not anxious, not encephalopathic, thought process linear ICD10 Worksheet Patient Problems: Problems Problem Status Onset Facial fracture due to fall Acute Hypotension Acute Syncope and collapse Acute
--- NOTE | 2016-10-16 16:59 | SOAPPROG ---
JASON Progress Note Assessment/Plan: Assessment: Plan: 10/16/16 16:57 1. Coronary artery disease 2 dyslipidemia 3. syncope. 4. Elevated glucose 5. Hypertension He has agreed to go ahead with coronary angiography. Not had angina He has not had any arrhythmias of significance. His know about the risk of angiography and they wished to proceed. All her questions have been answered. Think this is a very good chance he has significant coronary obstructive disease will need surgery. It is also possible perhaps that he is jennifer have major schedule with stenting but I would not be surprised if we saw very significant diffuse disease. We have reviewed prevention We reviewed the options Reviewed was going to happen and what the options are after this procedure. End of dictation all her questions have been answered. Subjective: is having no chest pain He has not had shortness of breath He has not felt lightheaded He has not had fever chills or cough No nausea vomiting No cough or sputum production. He has been quite active walking about the room and feeling quite stable. He has not been havinons. Objective: Vital Signs Temp Pulse Resp BP Pulse Ox 36.5 C 59 L 14 141/91 H 95 10/16/16 16:30 10/16/16 16:30 10/16/16 16:30 10/16/16 16:30 10/16/16 16:30 10/15/16 10/16/16 10/17/16 05:59 05:59 05:59 Intake Total 700 Balance 700 PT 13.4 SEC (12.0-15.0) 10/15/16 14:18 INR 1.03 (0.83-1.16) 10/15/16 14:18 Physical Exam - Physical Exam General Appearance: alert, no apparent distress Neck: non-tender Cardiac/Chest: regular rate, rhythm, systolic murmur, No JVD Abdomen: non-tender, soft Skin: warm/dry, No rash Lymphatic: no adenopathy Extremities: normal range of motion Neuro/Psych: normal mood/affect, oriented x 3 ICD10 Worksheet Patient Problems: Problems Problem Status Onset Facial fracture due to fall Acute Hypotension Acute Syncope and collapse Acute
[2016-10-16] MEDS ORDERED: MUPIROCIN 2% 22 GM OINT NS ONE (17:25)
[2016-10-16 19:30] LABS: HEMOGLOBIN A1C 6.9 % (4.0-6.0)
--- NOTE | 2016-10-16 19:52 | GOP ---
[f rep st] OPERATIVE REPORT DATE OF OPERATION: 10/16/2016 SURGEON: Dominick Wells DO PREOPERATIVE DIAGNOSIS: POSTOPERATIVE DIAGNOSIS: PROCEDURE PERFORMED: FINDINGS: DESCRIPTION OF PROCEDURE: Patient seen at the request of Dr. Lai with the patient's permission. IMPRESSION: 1. Severe 3-vessel disease with syncopal episode. 2. A blowout fracture of the right orbit. 3. Hypertension. 4. Type 2 diabetes. 5. Hypercholesterolemia. 6. Allergies to metformin and cashews. RECOMMENDATIONS: This patient should undergo coronary artery revascularization on this admission. We will perform this in the morning. I spent 45 minutes with the patient and his explaining in detail, including risks, complications, and alternatives. They are agreeable to proceed and apprec iative that we could schedule him as early as we have. CHIEF COMPLAINT: A 76-year-old gentleman who was running in the [employer] and lost consciousn ess and fell face first. He presented to the ER. He denied any chest pain. He did have a CAT scan of the face which showed a blowout fracture without any intracranial issues. He did have mildly el evated troponin of 0.696 and for that reason, despite having no anginal or cardiac history, underwen t diagnostic left heart cath which showed left main and severe 3-vessel disease. His LV function wa s mildly impaired. He has mild mitral regurgitation on echo and mild aortic insufficiency; otherwis e, no significant valvular dysfunction. PREVIOUS SURGERIES: Include tonsillectomy. MEDICATIONS: At present are reviewed as per MAR. FAMILY HISTORY: Noncontributory. PHYSICAL EXAMINATION: GENERAL: A slender [place]amese gentleman in no apparent distress. Alert and oriented, in bed recovering from diagnostic left heart catheterization. VITAL SIGNS: Blood pre ssure is 140/90, pulse 59, respirations 14 nonlabored, O2 sat was 95% on room air. HEENT: He has evidence of swelling over the right eye but is able to open it. There was no ecchymosis. NECK: Wi thout a bruit. HEART: Rate is regular with soft 1/6 systolic murmur. LUNGS: Clear. ABDOMEN: So ft, nontender. EXTREMITIES: Pedal pulses are 3+ and symmetrical. No edema. No varicosities. Cath reports were reviewed; please see separate dictation. /[id number]/MODL
[2016-10-16] MEDS: MUPIROCIN 2% 22 GM OINT NS SCH (20:34)
[2016-10-16] MEDS: PRAVASTATIN SODIUM 20 MG TAB PO SCH (20:35)
[2016-10-16] MEDS ORDERED: CHLORHEXIDINE GLUC HIBICLENS 118 ML BTL TP SCH (21:00)
[2016-10-17] MEDS ORDERED: INSULIN REGULAR HUMAN 100 UNIT in NS 100 ML IV ONE (06:00)
[2016-10-17] MEDS ORDERED: AMINOCAPROIC ACID 5 GM/20 ML VIAL IV ONE (06:00)
[2016-10-17] MEDS ORDERED: ceFAZolin 2 GM/DEXTROSE 100 ML IV ONE (06:00)
[2016-10-17] MEDS ORDERED: MANNITOL 25% 12.5 GM/50 ML VIAL IV ONE (06:00)
[2016-10-17] MEDS ORDERED: VERAPAMIL 5 MG, NITROGLYCERIN 2.5 MG, HEPARIN 500 UNIT, SODIUM BICARBONATE 0.2 MEQ in L... MISC ONE (06:00)
[2016-10-17] MEDS ORDERED: CITRATE DEXTROSE SOLN 500 ML BAG MISC ONE (06:00)
[2016-10-17] MEDS ORDERED: SODIUM BICARBONATE 20 MEQ, LIDOCAINE 1% 10 ML in NORMOSOL-R 1,000 ML MISC ONE (06:00)
[2016-10-17] MEDS ORDERED: NOREPINEPHRINE BITARTRATE 16 MG in NS 250 ML IV ONE (06:00)
[2016-10-17] MEDS ORDERED: PHENYLEPHRINE HCL 50 MG in NS 250 ML IV ONE (06:00)
[2016-10-17] MEDS ORDERED: POTASSIUM Cl (KCl) 20 MEQ/50 ML BAG IV ONE (06:18)
[2016-10-17] MEDS ORDERED: MILRINONE/DEXTROSE/100 ML BAG IV ONE (06:18)
[2016-10-17] MEDS ORDERED: PROTAMINE SULFATE 50 MG/5 ML VIAL IVP ONE (06:18)
[2016-10-17] MEDS ORDERED: CALCIUM CHLORIDE 1 GM/10 ML INJ ONE (06:18)
[2016-10-17] MEDS ORDERED: ALBUMIN 5% 250 ML BOTTLE IV ONE (06:18)
[2016-10-17] MEDS ORDERED: ADENOSINE 6 MG/2 ML VIAL ONE (06:19)
[2016-10-17] MEDS ORDERED: CITRATE DEXTROSE SOLN 500 ML BAG ONE (06:19)
[2016-10-17] MEDS ORDERED: LIDOCAINE 2% 100 MG/5 ML SYR ONE (06:19)
[2016-10-17] MEDS ORDERED: AMIODARONE HCL 150 MG/3 ML VIAL ONE (06:19)
[2016-10-17] MEDS ORDERED: niCARdipine/NACL/200 ML BAG IV ONE (06:19)
[2016-10-17] MEDS ORDERED: DOPamine/DEXTROSE/250 ML BAG IV ONE ×2 (06:19→13:13)
[2016-10-17] MEDS ORDERED: AMINOCAPROIC ACID 5 GM/20 ML VIAL ONE (06:19)
[2016-10-17] MEDS ORDERED: NA BICARBONATE 50 MEQ/50 ML VIAL ONE (06:19)
[2016-10-17] MEDS ORDERED: methylPREDNISolone SOD SUCC 1 GM/8 ML VIAL ONE (06:20)
[2016-10-17] MEDS ORDERED: ceFAZolin 1 GM VIAL ONE (06:20)
[2016-10-17] MEDS ORDERED: HEPARIN 10,000 UNIT/10 ML MDV ONE (06:20)
[2016-10-17] MEDS ORDERED: MAGNESIUM SULFATE 1 GM/2 ML VIAL ONE (06:20)
[2016-10-17] MEDS ORDERED: PAPAVERINE HCL 60 MG/2 ML SDV ONE (07:20)
[2016-10-17] MEDS ORDERED: VERAPAMIL 5 MG/2 ML VIAL ONE (07:20)
[2016-10-17] MEDS ORDERED: MIDAZOLAM 2 MG/2 ML VIAL ONE (08:07)
[2016-10-17] MEDS ORDERED: fentaNYL 100 MCG/2 ML INJ ONE ×5 (08:50→08:51)
[2016-10-17] MEDS ORDERED: PROPOFOL/EMULSION 500 MG/50 ML BOTTLE IV ONE (08:54)
[2016-10-17] MEDS ORDERED: DEXMEDETOMIDINE HCL 400 MCG in NS 100 ML IV SCH (11:30)
[2016-10-17] MEDS ORDERED: MINERAL OIL 10 ML VIAL ONE (12:16)
[2016-10-17] MEDS ORDERED: D50W 25 GM/50 ML SYR IVP PRN (12:50)
[2016-10-17] MEDS ORDERED: CEPACOL LOZENGE PO PRN (12:50)
[2016-10-17] MEDS ORDERED: MAGNESIUM SULF 2 GM/WATER 50 ML IV ONE (12:50)
[2016-10-17] MEDS ORDERED: METOCLOPRAMIDE 10 MG/2 ML VIAL IVP PRN (12:50)
[2016-10-17] MEDS ORDERED: PANTOPRAZOLE SODIUM 40 MG in NS 100 ML IV ONE (12:50)
[2016-10-17] MEDS ORDERED: POTASSIUM Cl (KCl) 50 ML IV PRN (12:50)
[2016-10-17] MEDS ORDERED: BISACODYL 10 MG SUPP PR PRN (12:50)
[2016-10-17] MEDS ORDERED: SODIUM CL NASAL 45 ML BTL EACHNARE PRN (12:50)
[2016-10-17] MEDS ORDERED: fentaNYL 100 MCG/2 ML INJ IVP PRN (12:50)
[2016-10-17] MEDS ORDERED: LACTULOSE 20 GM/30 ML UDCUP PO PRN (12:50)
[2016-10-17] MEDS ORDERED: MEPERIDINE 25 MG/ML SYR IVP PRN (12:50)
[2016-10-17] MEDS ORDERED: MAGNESIUM HYDROXIDE 30 ML UDCUP PO PRN (12:50)
[2016-10-17] MEDS ORDERED: POLYETHYLENE GLYCOL 3350 17 GM PKT PO PRN (12:50)
[2016-10-17] MEDS ORDERED: INSULIN REGULAR HUMAN 100 UNIT in NS 100 ML IV SCH (13:00)
[2016-10-17] MEDS ORDERED: NS 1,000 ML IV SCH (13:00)
--- NOTE | 2016-10-17 13:05 | POSTOPPROG ---
Post Op Note Date of Operation: 10/17/16 Surgeon: Dominick Wells [employer] Teacher: Scott Anesthesiologist: Tyrone Anesthesia: GET(General Endotracheal) Pre-op Diagnosis: AMI, ASHD Procedure: CAB 4 Carrillo=Lad, SVG-Dg,Lcx,PDA,EVH Atriclip MARY Inf/Abcess present in the surg proc area at time of surgery?: No EBL: 50-100 Drains: Other (2 blakes)
[2016-10-17] MEDS ORDERED: SODIUM BICARBONATE 50 MEQ/50 ML SYR ONE (13:23)
--- NOTE | 2016-10-17 13:44 | GOP ---
[f rep st] OPERATIVE REPORT DATE OF OPERATION: 10/17/2016 SURGEON: Dominick Wells DO [employer]CH[employer] F[employer] MACHINE OPERATOR: Joslyn Chavez, PAC. ANESTHESIA: Carl Hansen M.D. PREOPERATIVE DIAGNOSIS: Acute myocardial infarction with syncope. POSTOPERATIVE DIAGNOSIS: Acute myocardial infarction with syncope with evidence of severe 3-vessel disease. PROCEDURE PERFORMED: 1. Coronary artery bypass grafting x4 with left internal mammary artery to the distal left anterior descending, saphenous vein graft to the diagonal, saphenous vein graft to the posterolateral circum flex and saphenous vein graft to the PDA. 2. Endoscopic vein harvest. 3. AtriClip to the left atrial appendage. FINDINGS: This gentleman had a syncopal event with a facial fracture subsequently during the [employer] Race. He was being observed in hospital and was noted to have mildly elevated troponins w hich led to diagnostic catheterization which revealed severe 3-vessel disease with mild to moderate LV dysfunction. He has agreed to stay for coronary artery bypass grafting. He was consented, brought to the operating room, intubated, and monitoring lines were placed. Cooper otomy was performed. The mammary was harvested. Transesophageal echo revealed mild LV dysfunction with mild to moderate mitral insufficiency which was central. Mammary was harvested as a good quali ty, 2 mm vessel with brisk flow. The vein was harvested from the left leg endoscopically by MEGAN Godoy, who first assisted throughout the procedure. The vein was 3 to 3.5 mm in diameter. It was a dequate quality. After cannulation bypass was begun. A cardioplegic arrest was obtained with antegrade cardioplegia and topical hypothermia. Initially, the circumflex vessel was grafted with proximal anastomosis bro ught off the ascending aorta. We then grafted the diagonal and the mammary. All vessels were on the small side, but with some dif fuse plaque but had excellent flow. The mammary was grafted to an intramuscular segment of the mid- LAD which measured 2 mm in diameter. It was tacked to the epicardium. Rewarming was begun while a 1.8 mm PDA was grafted with a vein graft and brought off the ascending aorta as well. We then measu red the left atrial appendage and slightly oversized the clip in order to avoid any potential failur e and a 40 mm clip was placed across the appendage flush, which was free of thrombus on transesophag eal echo. The patient was then rewarmed, weaned from bypass. The heparin was reversed with protamine. The ca nnula was removed and oversewn. Four pacing wires, 1 left pleural and 1 mediastinal drain were plac ed. The thymic fat and pericardium were closed. Chest was closed in standard fashion. The patient was returned to the ICU in stable condition. DESCRIPTION OF PROCEDURE: /[id number]/MODL
[2016-10-17] MEDS ORDERED: SODIUM BICARBONATE 50 MEQ/50 ML SYR IVP ONE (13:45)
--- NOTE | 2016-10-17 13:58 | CPEKG ---
Heart Rate: 80 RR Interval: 750 P-R Interval: 172 QRSD Interval: 82 QT Interval: 400 QTC Interval: 462 QRS Harriet: -17 T Wave Harriet: -2 EKG Severity - ABNORMAL ECG - EKG Impression: A-V DUAL-PACED COMPLEXES W/ SOME INHIBITION EKG Impression: IN COMPARISON TO PRIOR ECG, AV PACING IS NEW Electronically Signed By: Spencer Camacho 17-Oct-2016 20:55:05
[2016-10-17] MEDS: MUPIROCIN 2% 22 GM OINT NS SCH ×2 (14:12→22:29)
[2016-10-17] MEDS: AMOXICILLIN/CLAVULANATE POT 875/125 MG TAB PO SCH (14:12)
--- NOTE | 2016-10-17 14:29 | GCON ---
[f rep st] CONSULTATION EMERGENCY ROOM SPECIALIST CONSULTATION. REASON FOR CONSULTATION: The patient is examined postoperatively after receiving four-vessel preciado ry bypass graft. HISTORY OF PRESENT ILLNESS: The patient is a very pleasant 76-year-old white male with a past medic al history of hypertension and hyperlipidemia who was admitted on 10/14. He was running the [employer] and had a syncopal episode, striking his face. He had an orbital blowout fracture at that t vero. He was admitted with a diagnosis of syncope, thought to be secondary to dehydration and over e xertion. Cardiology was consulted and he was found to have significant coronary artery disease. Ca rdiothoracic surgery was consulted; and again, he went to the operating room today for a four-vessel coronary artery bypass graft. He is currently extubated and off mechanical ventilation and resting comfortably. PAST MEDICAL HISTORY: Again, significant for coronary artery disease, hypertension, hyperlipidemia, syncopal episode, orbital blowout fracture. ALLERGIES: Metformin. SOCIAL HISTORY: No history of tobacco use. Infrequent alcohol use. He is currently retired. MEDICATIONS: Include lisinopril, TriCor, pravastatin. PHYSICAL EXAM: VITAL SIGNS: Blood pressure is 105/83, pulse 63, respirations 16, temperature 36.7, oxygen saturation 93% on room air. GENERAL: He is a well-developed 76-year-old male who is restin g comfortably in no acute distress. HEENT: Eyes: EZRA. EOMI. Throat shows no erythema or tonsil lar hypertrophy. NECK: Supple. There is no cervical adenopathy. HEART: Regular rate and rhythm without murmurs, rubs, or gallops. LUNGS: Clear to auscultation. No wheeze or rhonchi. ABDOMEN: Soft, nontender. Bowel sounds are present. EXTREMITIES: No clubbing, cyanosis, or edema. LABORATORY FINDINGS: White count 7.9, hemoglobin 13, hematocrit 41, platelet count 218. INR is 1. Sodium 138, potassium 4.8, chloride 109, CO2 22, BUN 19, creatinine 1, glucose is 111. Hemoglobin A1c is 6.9. IMPRESSION: 1. Coronary artery disease. 2. Status post coronary bypass graft, 4 vessels. 3. Respiratory, stable off mechanical ventilation. 4. Hyperlipidemia. 5. Syncopal episode. 6. Orbital blowout fracture. 7. Hypertension. RECOMMENDATIONS: 1. Adequate pain control. 2. Wean FiO2 as tolerated. 3. DVT and PE prophylaxis. Holding anticoagulation for now. 4. Stress ulcer prophylaxis. 5. Early ambulation. 6. PT and OT. /[id number]/MODL
[2016-10-17] MEDS: ONDANSETRON 4 MG/2 ML VIAL IVP PRN (14:52)
[2016-10-17] MEDS: ALBUMIN 5% 250 ML IV PRN ×2 (14:53→20:29)
[2016-10-17] MEDS: ceFAZolin 2 GM/DEXTROSE 100 ML IV SCH ×2 (14:53→22:04)
[2016-10-17] MEDS: ASPIRIN 325 MG TAB PO SCH (15:06)
[2016-10-17] MEDS: METOPROLOL TARTRATE 25 MG TAB PO SCH (15:07)
[2016-10-17 19:32] LABS: CALCULATED OXYGEN SATURATION 95 % (92-95)
[2016-10-17] MEDS: HYDROCODONE/APAP 5/325 TAB PO PRN (22:46)
[2016-10-17 23:57] LABS: HEMATOCRIT 27.4 % (40.0-51.0); HEMOGLOBIN 9.4 g/dL (13.7-17.5); MEAN CELL HEMOGLOBIN 32.3 pg (27.9-34.1); MEAN CELL HEMOGLOBIN CONCENTR. 34.3 g/dL (32.4-36.7); MEAN CELL VOLUME 94.2 fL (81.5-99.8); RED BLOOD CELL COUNT 2.91 10^6/uL (4.40-6.38); RED CELL DISTRIBUTION WIDTH 12.3 % (11.5-15.2)
[2016-10-18] MEDS: ALBUMIN 5% 250 ML IV PRN ×2 (02:41→03:45)
[2016-10-18] MEDS: HYDROCODONE/APAP 5/325 TAB PO PRN ×5 (03:45→20:39)
[2016-10-18] MEDS: ONDANSETRON 4 MG/2 ML VIAL IVP PRN (04:40)
[2016-10-18 05:19] LABS: % IMMATURE GRANULYOCYTES 0.4 % (0.0-1.1); ABSOLUTE IMMATURE GRANULOCYTES 0.05 10^3/uL (0.00-0.10); ADD DIFF? NO; ADD MORPH? NO; ADD SCAN? NO; ATYPICAL LYMPHOCYTE FLAG 0 (0-99); FRAGMENT RBC FLAG 0 (0-99); HEMATOCRIT 25.2 % (40.0-51.0); HEMOGLOBIN 8.5 g/dL (13.7-17.5); LEFT SHIFT FLG 20 (0-99); LIPEMIA HEMOLYSIS FLAG 80 (0-99); MEAN CELL HEMOGLOBIN 32.6 pg (27.9-34.1); MEAN CELL HEMOGLOBIN CONCENTR. 33.7 g/dL (32.4-36.7); MEAN CELL VOLUME 96.6 fL (81.5-99.8); MEAN PLATELET VOLUME 10.1 fL (8.7-11.7); PLATELET CLUMPS FLAG 10 (0-99); PLATELET COUNT 111 10^3/uL (150-400); RED BLOOD CELL COUNT 2.61 10^6/uL (4.40-6.38); RED CELL DISTRIBUTION WIDTH 12.6 % (11.5-15.2)
[2016-10-18] MEDS: HEPARIN 5,000 UNIT/0.5 ML SYR SC SCH ×3 (05:30→20:24)
[2016-10-18] MEDS: ceFAZolin 2 GM/DEXTROSE 100 ML IV SCH ×3 (05:30→20:24)
[2016-10-18 05:38] LABS: ANION GAP 14 mEq/L (8-16); CALCIUM 8.5 mg/dL (8.5-10.4); CARBON DIOXIDE 18 mEq/l (22-31); CHLORIDE 108 mEq/L (97-110); GLOMERULAR FILTRATION RATE > 60; GLUCOSE 112 mg/dL (70-100); POTASSIUM 4.5 mEq/L (3.5-5.2); SODIUM 140 mEq/L (134-144)
[2016-10-18 06:05] LABS: CALCULATED OXYGEN SATURATION 92 % (92-95); O2 CONCENTRATIION 2 % (0-100)
[2016-10-18] MEDS ORDERED: SODIUM BICARBONATE 50 MEQ/50 ML SYR ONE (06:14)
[2016-10-18] MEDS ORDERED: FUROSEMIDE 20 MG/2 ML VIAL ONE (06:26)
[2016-10-18] MEDS ORDERED: FUROSEMIDE 20 MG/2 ML VIAL IVP ONE ×2 (06:45→13:30)
[2016-10-18] MEDS ORDERED: NA BICARBONATE 50 MEQ/50 ML VIAL IV ONE (06:45)
--- NOTE | 2016-10-18 07:52 | SOAPPROG ---
SOAP Progress Note Assessment/Plan: POD #1: CABGx4 (BECERRA-LAD, SVG-Diag, SVG-Circ, SVH-PDA), EVH LLE, AtriClip MARY AMI/Severe 3VD s/p CABGx4 - Wean dopamine as tolerated - CTs to bulb suction, FC out - AL to remain while on pressors Acute blood loss anemia - s/p 1U PRBC - monitor DM, HgbA1c of 6.9 - IM consult ordered - Insulin gtt with transition to ISS Acute right orbital floor fx s/p syncopal episode - Seen by OMFS - plan for future repair Subjective: c/o chest tightness. No SOB/dyspnea. Objective: Vital Signs Temp Pulse Resp BP Pulse Ox 37.4 C 89 16 130/55 H 100 10/18/16 07:00 10/18/16 07:00 10/18/16 07:00 10/18/16 07:00 10/18/16 07:00 Laboratory Results 10/18/16 05:00 10/18/16 05:00 10/17/16 10/18/16 10/19/16 05:59 05:59 05:59 Intake Total 300 2194 Output Total 2250 500 Balance 300 -56 -500 PT 13.4 SEC (12.0-15.0) 10/15/16 14:18 INR 1.03 (0.83-1.16) 10/15/16 14:18 Physical Exam - Physical Exam General Appearance: WD/WN, alert, no apparent distress EENT: No scleral icterus (R), No scleral icterus (L) Neck: normal inspection Respiratory: No respiratory distress Cardiac/Chest: regular rate, rhythm Abdomen: non-tender, soft, No distended Skin: normal color, warm/dry Extremities: No pedal edema Neuro/Psych: no motor/sensory deficits, alert, normal mood/affect, oriented x 3 ICD10 Worksheet Patient Problems: Problems Problem Status Onset Acute blood loss anemia Acute CAD, multiple vessel Acute Facial fracture due to fall Acute S/P CABG x 4 Acute ~10/17/16 Syncope and collapse Acute
--- NOTE | 2016-10-18 09:18 | PDINTPN ---
Foreign Exchange Dealer Progress Note Assessment/Plan: Assessment/planned: * Coronary disease * Status post coronary bypass graft-4 vessel * Respiratory-stable * Orbital blowout fracture * Hypertension * Hyperlipidemia * Pain-tolerable * PT/OT * Ambulation Subjective: Up in chair. Pain is tolerable. Denies any breathlessness Objective: Vital Signs Temp Pulse Resp BP Pulse Ox 37.7 C 88 20 130/55 H 96 10/18/16 09:00 10/18/16 09:00 10/18/16 09:00 10/18/16 09:00 10/18/16 09:00 Laboratory Results 10/18/16 05:00 10/18/16 05:00 10/17/16 10/18/16 10/19/16 05:59 05:59 05:59 Intake Total 300 2194 100 Output Total 2250 1050 Balance 300 -56 -950 PT 13.4 SEC (12.0-15.0) 10/15/16 14:18 INR 1.03 (0.83-1.16) 10/15/16 14:18 Chest [id number] by myself. Minimal bibasilar atelectasis Physical Exam - Physical Exam General Appearance: alert, no apparent distress EENT: PERRL/EOMI, normal ENT inspection Neck: non-tender, full range of motion, supple, normal inspection Respiratory: crackles (Few basilar) Cardiac/Chest: normal peripheral pulses, regular rate, rhythm, systolic murmur Peripheral Pulses: 2+: carotid (R), carotid (L), femoral (R), femoral (L), dorsalis-pedis (R), dorsalis-pedis (L) Abdomen: normal bowel sounds, non-tender, soft Male Genitalia: deferred Rectal: deferred Skin: normal color, warm/dry Extremities: normal range of motion, non-tender, normal inspection, normal capillary refill Neuro/Psych: alert, oriented x 3 ICD10 Worksheet Patient Problems: Problems Problem Status Onset Acute blood loss anemia Acute CAD, multiple vessel Acute Facial fracture due to fall Acute S/P CABG x 4 Acute ~10/17/16 Syncope and collapse Acute
[2016-10-18] MEDS ORDERED: PROTOCOL POTASSIUM 1 DOSE MISC PRN (09:36)
[2016-10-18] MEDS: PANTOPRAZOLE SODIUM 40 MG TAB PO SCH (09:55)
[2016-10-18] MEDS: ASPIRIN 81 MG CHEWABLE TAB PO SCH (09:55)
[2016-10-18] MEDS: POTASSIUM Cl (KCl) 50 ML IV SCH ×3 (09:55→11:30)
[2016-10-18] MEDS: MUPIROCIN 2% 22 GM OINT NS SCH (11:36)
[2016-10-18 14:33] LABS: POTASSIUM 4.3 mEq/L (3.5-5.2)
[2016-10-18 18:13] LABS: POTASSIUM 4.1 mEq/L (3.5-5.2)
[2016-10-18] MEDS: INSULIN LISPRO 100 UNIT/ML SC SCH (18:34)
[2016-10-18] MEDS: SENNOSIDES/DOCUSATE SODIUM TAB PO SCH (20:24)
[2016-10-19] MEDS: HYDROCODONE/APAP 5/325 TAB PO PRN ×2 (02:39→08:33)
[2016-10-19 03:04] LABS: % IMMATURE GRANULYOCYTES 0.4 % (0.0-1.1); ABSOLUTE IMMATURE GRANULOCYTES 0.06 10^3/uL (0.00-0.10); ADD DIFF? NO; ADD MORPH? NO; ADD SCAN? NO; ATYPICAL LYMPHOCYTE FLAG 0 (0-99); FRAGMENT RBC FLAG 0 (0-99); HEMATOCRIT 29.6 % (40.0-51.0); LEFT SHIFT FLG 10 (0-99); LIPEMIA HEMOLYSIS FLAG 90 (0-99); MEAN CELL HEMOGLOBIN 31.9 pg (27.9-34.1); MEAN CELL HEMOGLOBIN CONCENTR. 33.8 g/dL (32.4-36.7); MEAN CELL VOLUME 94.6 fL (81.5-99.8); MEAN PLATELET VOLUME 10.4 fL (8.7-11.7); PLATELET CLUMPS FLAG 0 (0-99); PLATELET COUNT 120 10^3/uL (150-400); RED BLOOD CELL COUNT 3.13 10^6/uL (4.40-6.38); RED CELL DISTRIBUTION WIDTH 14.3 % (11.5-15.2)
[2016-10-19 03:28] LABS: ANION GAP 8 mEq/L (8-16); CALCIUM 8.3 mg/dL (8.5-10.4); CARBON DIOXIDE 28 mEq/l (22-31); CHLORIDE 105 mEq/L (97-110); GLOMERULAR FILTRATION RATE > 60; GLUCOSE 162 mg/dL (70-100); POTASSIUM 4.2 mEq/L (3.5-5.2); SODIUM 141 mEq/L (134-144)
[2016-10-19] MEDS: HEPARIN 5,000 UNIT/0.5 ML SYR SC SCH ×3 (06:15→22:04)
--- NOTE | 2016-10-19 07:54 | SOAPPROG ---
SOAP Progress Note Assessment/Plan: POD #2: CABGx4 (BECERRA-LAD, SVG-Diag, SVG-Circ, SVH-PDA), EVH LLE, AtriClip MARY AMI/Severe 3VD s/p CABGx4 - Dopamine weaned off - CTs to bulb suction - transfer to PCU Acute blood loss anemia - Stable s/p 1U PRBC - monitor DM, HgbA1c of 6.9 - IM consult ordered - Continue ISS Acute right orbital floor fx s/p syncopal episode without vision changes - Seen by OMFS and offered surgery - as per pt, he will wait and see if surgery is necessary. Subjective: Still has some chest tightness. Objective: Vital Signs Temp Pulse Resp BP Pulse Ox 36.7 C 89 19 107/68 100 10/18/16 21:00 10/19/16 06:00 10/19/16 06:00 10/19/16 06:00 10/19/16 06:00 Laboratory Results 10/19/16 02:57 10/19/16 02:57 10/18/16 10/19/16 10/20/16 05:59 05:59 05:59 Intake Total 2194 2235 Output Total 2250 3250 Balance -56 -1015 PT 13.4 SEC (12.0-15.0) 10/15/16 14:18 INR 1.03 (0.83-1.16) 10/15/16 14:18 Physical Exam - Physical Exam General Appearance: WD/WN, alert, no apparent distress EENT: No scleral icterus (R), No scleral icterus (L) Neck: normal inspection Respiratory: No respiratory distress Cardiac/Chest: regular rate, rhythm Abdomen: non-tender, soft, No distended Skin: normal color, warm/dry Extremities: pedal edema Neuro/Psych: no motor/sensory deficits, alert, normal mood/affect, oriented x 3 ICD10 Worksheet Patient Problems: Problems Problem Status Onset Acute blood loss anemia Acute CAD, multiple vessel Acute Facial fracture due to fall Acute S/P CABG x 4 Acute ~10/17/16 Syncope and collapse Acute
[2016-10-19] MEDS: PANTOPRAZOLE SODIUM 40 MG TAB PO SCH (08:33)
[2016-10-19] MEDS: ASPIRIN 81 MG CHEWABLE TAB PO SCH (08:34)
[2016-10-19] MEDS: SENNOSIDES/DOCUSATE SODIUM TAB PO SCH ×2 (08:34→22:03)
--- NOTE | 2016-10-19 09:48 | PDINTPN ---
Scheduling Representative Progress Note Assessment/Plan: Assessment/planned: * Coronary disease * Status post coronary bypass graft-4 vessel * Respiratory-stable * Orbital blowout fracture * Hypertension * Hyperlipidemia * Pain-tolerable * PT/OT * Ambulation * Disposition-transfer to progressive care unit today Subjective: Sitting up in chair. Comfortable. Chest pain tolerable. Objective: Vital Signs Temp Pulse Resp BP Pulse Ox 36.8 C 96 20 115/74 99 10/19/16 08:00 10/19/16 08:00 10/19/16 08:00 10/19/16 08:00 10/19/16 08:00 Laboratory Results 10/19/16 02:57 10/19/16 02:57 10/18/16 10/19/16 10/20/16 05:59 05:59 05:59 Intake Total 2194 2235 Output Total 2250 3250 Balance -56 -1015 PT 13.4 SEC (12.0-15.0) 10/15/16 14:18 INR 1.03 (0.83-1.16) 10/15/16 14:18 Physical Exam - Physical Exam General Appearance: alert, no apparent distress EENT: PERRL/EOMI, normal ENT inspection, pharynx normal Neck: non-tender, full range of motion, supple, normal inspection Respiratory: chest non-tender, lungs clear, normal breath sounds Cardiac/Chest: normal peripheral pulses, regular rate, rhythm Abdomen: normal bowel sounds, non-tender, soft Male Genitalia: deferred Rectal: deferred Skin: normal color, warm/dry ICD10 Worksheet Patient Problems: Problems Problem Status Onset Acute blood loss anemia Acute CAD, multiple vessel Acute Facial fracture due to fall Acute S/P CABG x 4 Acute ~10/17/16 Syncope and collapse Acute
[2016-10-19] MEDS: INSULIN LISPRO 100 UNIT/ML SC SCH ×3 (10:00→16:45)
[2016-10-19] MEDS ORDERED: AMIODARONE A.FIB-18HR INFSN (ORDER 3/3) IV ONE ×2 (11:00→17:00)
[2016-10-19] MEDS ORDERED: AMIODARONE A.FIB-6HR INFSN (ORDER 2/3) IV ONE (11:00)
[2016-10-19] MEDS ORDERED: AMIODARONE A.FIB-LOAD DOSE(ORDER 1/3) IV ONE (11:00)
--- NOTE | 2016-10-19 11:23 | ECHO ---
[id number] + + [address] : : [place] [address] : : [phone] + + Adult Echocardiographic Report + + :Name: ALEXIS ARNOLD Study Date: 10/18/2016 03:01 PM : : Hospital Admission Number: [id number] : :: 1940 Gender: Male : :Age: 76 yrs Race: : :Reason For Study: Eval for pericardial effusion : :History: Post CABG, Hypotension : + + MMode/2D Measurements \T\ Calculations IVSd: 1.2 cm LVIDd: 4.3 cm FS: 35.4 % LVPWd: 1.0 cm LVIDs: 2.8 cm EDV(Teich): 81.8 ml ESV(Teich): 28.5 ml EF(Teich): 65.2 % Normal Measurement Values: + + :LVIDd (3.5-5.7cm) IVSd (0.6-1.1cm) LVPWd (0.6-1.1cm) Aortic Root (2.0-3.7cm)Left Atrium (1.5-4.0cm): :LV Vol(d) (76-115ml) LV Vol(s) (29-48ml) Ejec Fraction (50-65%)PV Ruben (0.6- 1.2m/s) TV Ruben (0.4-1.0m/s) : :MV E Ruben (0.8-1.0m/s)MV A Ruben (0.3-1.0m/s)LVOT Ruben (0.7-1.2m/s) Asc Ao Ruben ( 0.9-1.8m/s) : + + Left Ventricle The left ventricular ejection fraction is normal. Pericardium/Pleural There is no pericardial effusion. Conclusion This is a limited echo to evaluate for pericardial effusion. The left ventricular ejection fraction is normal. There is no pericardial effusion. Final Reading Physician: Sky Nava signed on 10/19/2016 11:22 AM Ordering Physician: Pk Givens Performed By: Yuriy Mccrary, CONNIECS
[2016-10-19] MEDS: traMADol 50 MG TAB PO PRN ×2 (13:42→22:03)
[2016-10-19 14:39] LABS: POTASSIUM 4.1 mEq/L (3.5-5.2)
[2016-10-19] MEDS: PRAVASTATIN SODIUM 20 MG TAB PO SCH (22:04)
[2016-10-20] MEDS: HEPARIN 5,000 UNIT/0.5 ML SYR SC SCH ×3 (05:31→20:18)
[2016-10-20 05:46] LABS: HEMATOCRIT 29.6 % (40.0-51.0); HEMOGLOBIN 9.8 g/dL (13.7-17.5); MEAN CELL HEMOGLOBIN 31.7 pg (27.9-34.1); MEAN CELL HEMOGLOBIN CONCENTR. 33.1 g/dL (32.4-36.7); MEAN CELL VOLUME 95.8 fL (81.5-99.8); RED BLOOD CELL COUNT 3.09 10^6/uL (4.40-6.38); RED CELL DISTRIBUTION WIDTH 13.7 % (11.5-15.2)
[2016-10-20 06:05] LABS: ANION GAP 6 mEq/L (8-16); CARBON DIOXIDE 29 mEq/l (22-31); CHLORIDE 99 mEq/L (97-110); CREATININE 0.8 mg/dL (0.7-1.3); GLOMERULAR FILTRATION RATE > 60; GLUCOSE 151 mg/dL (70-100); SODIUM 134 mEq/L (134-144)
[2016-10-20] MEDS: ASPIRIN 81 MG CHEWABLE TAB PO SCH (08:29)
[2016-10-20] MEDS: INSULIN LISPRO 100 UNIT/ML SC SCH (08:29)
[2016-10-20] MEDS: PANTOPRAZOLE SODIUM 40 MG TAB PO SCH (08:29)
[2016-10-20] MEDS: SENNOSIDES/DOCUSATE SODIUM TAB PO SCH ×2 (08:29→20:10)
--- NOTE | 2016-10-20 08:37 | SOAPPROG ---
SOAP Progress Note Assessment/Plan: POD #3: CABGx4 (BECERRA-LAD, SVG-Diag, SVG-Circ, SVH-PDA), EVH LLE, AtriClip MARY AMI/Severe 3VD s/p CABGx4 - BB/ASA/statin - CT #1 to be removed #2 likely tomorrow Acute blood loss anemia - Stable s/p 1U PRBC - monitor DM, HgbA1c of 6.9 - For outpatient mgmt Acute right orbital floor fx s/p syncopal episode without vision changes - Seen by OMFS and offered surgery - as per pt, he will wait and see if surgery is necessary Post-op PAF - Quick conversion to SR on amiodarone - Thromboprophylaxis held off d/t short duration and MARY ligation 10/20/16 11:26 Subjective: Feels much better today. Denies pain/SOB. Objective: Vital Signs Temp Pulse Resp BP Pulse Ox 36.8 C 77 18 127/78 H 98 10/20/16 07:03 10/20/16 07:03 10/20/16 07:03 10/20/16 07:03 10/20/16 07:03 Laboratory Results 10/20/16 05:30 10/20/16 05:30 10/19/16 10/20/16 10/21/16 05:59 05:59 05:59 Intake Total 2235 792 Output Total 3250 1100 Balance -1015 -308 PT 13.4 SEC (12.0-15.0) 10/15/16 14:18 INR 1.03 (0.83-1.16) 10/15/16 14:18 Physical Exam - Physical Exam General Appearance: WD/WN, alert, no apparent distress EENT: No scleral icterus (R), No scleral icterus (L) Neck: normal inspection Respiratory: lungs clear, No respiratory distress ( ) Cardiac/Chest: regular rate, rhythm Abdomen: non-tender, soft, No distended Skin: normal color, warm/dry Extremities: No pedal edema Neuro/Psych: no motor/sensory deficits, alert, normal mood/affect, oriented x 3 ICD10 Worksheet Patient Problems: Problems Problem Status Onset Acute blood loss anemia Acute CAD, multiple vessel Acute Facial fracture due to fall Acute S/P CABG x 4 Acute ~10/17/16 Syncope and collapse Acute
[2016-10-20] MEDS: METOPROLOL TARTRATE 25 MG TAB PO SCH ×2 (10:09→20:09)
[2016-10-20] MEDS: AMIODARONE HCL 200 MG TAB PO SCH ×2 (10:12→20:09)
--- NOTE | 2016-10-20 10:15 | SOAPPROG ---
SORICARDO Progress Note Assessment/Plan: Assessment: Plan: 10/20 2016. 1. Coronary artery disease 2 dyslipidemia 3. syncope. 4. Elevated glucose 5. Hypertension 6. Status post coronary artery bypass grafting. He is doing very well postop. He had a brief episode of atrial fibrillation and is on amiodarone. He is having no chest pain or jaw pain He is having some chest soreness. He is not having any other significant issues right at this time. He feels quite well. I have gone over prevention extensively with him. We reviewed all his questions. If he deteriorates in any way he will let me know. Otherwise he is going to follow up with cardiac surgery service and come see me routinely in 2-4 weeks. discussed w cts. 10/20/16 10:15 Subjective: His chest is sore. Has no shortness of breath He has no nausea vomiting He has no fevers chills He is taking his medication He sitting upright when I visit with him and he is able to walk around quite well. He has no new edema. He is not having headache stiff neck sore throats He is not having palpitations. Objective: Vital Signs Temp Pulse Resp BP Pulse Ox 36.8 C 77 18 127/78 H 98 10/20/16 07:03 10/20/16 07:03 10/20/16 07:03 10/20/16 07:03 10/20/16 07:03 Laboratory Results 10/20/16 05:30 10/20/16 05:30 10/19/16 10/20/16 10/21/16 05:59 05:59 05:59 Intake Total 2235 792 Output Total 3250 1100 250 Balance -1015 -308 -250 PT 13.4 SEC (12.0-15.0) 10/15/16 14:18 INR 1.03 (0.83-1.16) 10/15/16 14:18 Physical Exam - Physical Exam General Appearance: WD/WN, alert, no apparent distress Respiratory: lungs clear, No accessory muscle use, No decreased breath sounds Cardiac/Chest: systolic murmur Abdomen: non-tender (A high he he), soft Skin: warm/dry Extremities: non-tender, No calf tenderness Neuro/Psych: alert, normal mood/affect ICD10 Worksheet Patient Problems: Problems Problem Status Onset Acute blood loss anemia Acute CAD, multiple vessel Acute Facial fracture due to fall Acute S/P CABG x 4 Acute ~10/17/16 Syncope and collapse Acute
[2016-10-20] MEDS: FENOFIBRATE 145 MG TAB PO SCH (20:09)
[2016-10-20] MEDS: PRAVASTATIN SODIUM 20 MG TAB PO SCH (20:10)
[2016-10-20] MEDS: traMADol 50 MG TAB PO PRN (22:44)
[2016-10-21] MEDS: HEPARIN 5,000 UNIT/0.5 ML SYR SC SCH ×3 (04:30→20:30)
[2016-10-21] MEDS ORDERED: FUROSEMIDE 20 MG/2 ML VIAL IVP ONE (09:55)
[2016-10-21] MEDS ORDERED: POTASSIUM CL 10 MEQ TAB PO ONE (09:55)
[2016-10-21] MEDS ORDERED: METOPROLOL TARTRATE 25 MG TAB PO ONE (09:55)
[2016-10-21] MEDS: SENNOSIDES/DOCUSATE SODIUM TAB PO SCH (10:00)
[2016-10-21] MEDS ORDERED: POTASSIUM CL 10 MEQ TAB ONE (10:02)
[2016-10-21] MEDS ORDERED: FUROSEMIDE 20 MG/2 ML VIAL ONE (10:02)
--- NOTE | 2016-10-21 12:04 | SOAPPROG ---
SOAP Progress Note Assessment/Plan: Assessment: POD#4 CABGx4 (BECERRA-LAD, SVG-Diag, SVG-Circ, SVH-PDA), EVH LLE, AtriClip LLAA *late entry - original paper entry filed earlier this am, while [employer] down* AMI/Severe 3VD s/p CABGx4 - BB/ASA/statin. Diuresis until back to baseline wt. - CT #2 likely out later today Acute blood loss anemia - Stable s/p 1U PRBC - monitor DM, HgbA1c of 6.9 - For outpatient mgmt Acute right orbital floor fx s/p syncopal episode without vision changes - Seen by OMFS and offered surgery - as per pt, he will wait and see if surgery is necessary Post-op PAF - Quick conversion to SR on amiodarone - Thromboprophylaxis held off d/t short duration and MARY ligation Plan: Lasix 20 mg IV x 1. Inc metoprolol to 25 mg BID. D/C bowel regimen. Consider candie removal later today Anticipate home tomorrow. 10/21/16 12:04 Subjective: Improving mobility and ambulatory capacity. Only c/o loose stools. Objective: Vital Signs Temp Pulse Resp BP Pulse Ox 36.6 C 70 18 124/73 H 98 10/21/16 11:24 10/21/16 11:24 10/21/16 11:24 10/21/16 11:24 10/21/16 11:24 Laboratory Results 10/20/16 05:30 10/20/16 05:30 10/20/16 10/21/16 10/22/16 05:59 05:59 05:59 Intake Total 792 200 630 Output Total 1100 1275 450 Balance -308 -1075 180 PT 13.4 SEC (12.0-15.0) 10/15/16 14:18 INR 1.03 (0.83-1.16) 10/15/16 14:18 Holding SR 60s-70s. SBPs 120s-130s. Min suppl O2 req. Improving I/Os. +4 kg overall. - Pending Discharge Pending Discharge Within 24 Hours: Yes Pending Discharge Date: 10/22/16 Pending Discharge Time: 11:00 Physical Exam - Physical Exam General Appearance: alert, no apparent distress Respiratory: crackles (basilar), other (Candie to bulb suction, thin serosang drainage) Cardiac/Chest: regular rate, rhythm, friction rub, other (Sternum grossly stable. Sternotomy CDI.) Abdomen: non-tender, soft Skin: warm/dry Extremities: swelling (trace to 1+ dependent), other (LLE venotomy CDI) ICD10 Worksheet Patient Problems: Problems Problem Status Onset Acute blood loss anemia Acute CAD, multiple vessel Acute Facial fracture due to fall Acute S/P CABG x 4 Acute ~10/17/16 Syncope and collapse Acute
[2016-10-21] MEDS: AMIODARONE HCL 200 MG TAB PO SCH ×2 (12:11→20:30)
[2016-10-21] MEDS: ASPIRIN 81 MG CHEWABLE TAB PO SCH (12:12)
[2016-10-21] MEDS: PANTOPRAZOLE SODIUM 40 MG TAB PO SCH (12:14)
[2016-10-21] MEDS: METOPROLOL TARTRATE 25 MG TAB PO SCH ×2 (12:15→20:31)
[2016-10-21] MEDS: FENOFIBRATE 145 MG TAB PO SCH (20:30)
[2016-10-21] MEDS: PRAVASTATIN SODIUM 20 MG TAB PO SCH (20:31)
[2016-10-22] MEDS: HEPARIN 5,000 UNIT/0.5 ML SYR SC SCH ×2 (06:02→15:59)
[2016-10-22 06:29] LABS: POTASSIUM 4.1 mEq/L (3.5-5.2)
[2016-10-22 07:27] VITALS: O2SAT 99
--- NOTE | 2016-10-22 08:41 | SOAPPROG ---
SOAP Progress Note Assessment/Plan: POD #5: CABGx4 (BECERRA-LAD, SVG-Diag, SVG-Circ, SVH-PDA), EVH LLE, AtriClip MARY AMI/Severe 3VD s/p CABGx4 - BB/ASA/statin - All tubes out Acute blood loss anemia - Stable s/p 1U PRBC - monitor DM, HgbA1c of 6.9 - For outpatient mgmt Acute right orbital floor fx s/p syncopal episode without vision changes - Seen by OMFS and offered surgery - as per pt, he will wait and see if surgery is necessary Post-op PAF - Quick conversion to SR on amiodarone - Thromboprophylaxis held off d/t short duration and MARY ligation Disposition - Home today Subjective: Denies pain/SOB. Feels ready to go home. Objective: Vital Signs Temp Pulse Resp BP Pulse Ox 36.8 C 67 20 134/69 H 99 10/22/16 07:26 10/22/16 07:26 10/22/16 07:26 10/22/16 07:26 10/22/16 07:26 Laboratory Results 10/20/16 05:30 10/22/16 05:45 10/21/16 10/22/16 10/23/16 05:59 05:59 05:59 Intake Total 200 1380 Output Total 1275 1875 Balance -1075 -495 PT 13.4 SEC (12.0-15.0) 10/15/16 14:18 INR 1.03 (0.83-1.16) 10/15/16 14:18 Physical Exam - Physical Exam General Appearance: WD/WN, alert, no apparent distress EENT: No scleral icterus (R), No scleral icterus (L) Neck: normal inspection Respiratory: No respiratory distress Cardiac/Chest: regular rate, rhythm Abdomen: non-tender, soft, No distended Skin: normal color, warm/dry Extremities: pedal edema (Trace B/L) Neuro/Psych: no motor/sensory deficits, alert, normal mood/affect, oriented x 3 ICD10 Worksheet Patient Problems: Problems Problem Status Onset Acute blood loss anemia Acute CAD, multiple vessel Acute Facial fracture due to fall Acute S/P CABG x 4 Acute ~10/17/16 Syncope and collapse Acute
[2016-10-22] MEDS ORDERED: TRIAMTERENE/HCTZ 37.5/25 1 EACH CAP PO SCH (09:00)
[2016-10-22] MEDS: METOPROLOL TARTRATE 25 MG TAB PO SCH (09:48)
[2016-10-22] MEDS: PANTOPRAZOLE SODIUM 40 MG TAB PO SCH (09:48)
[2016-10-22] MEDS: ASPIRIN 81 MG CHEWABLE TAB PO SCH (09:48)
[2016-10-22] MEDS: AMIODARONE HCL 200 MG TAB PO SCH (09:48)
[2016-10-22 13:58] VITALS: BP 97/58; PULSE 75; RESP 18; TEMP 98.8
--- NOTE | 2016-10-22 17:07 | PDDCSUM ---
Discharge Summary Discharge Summary: ADMISSION DATE: 10/15/16 DISCHARGE DATE: 10/22/16 ADMISSION DX: 1. Syncope 2. Acute myocardial infarction 3. Severe 3-vessel coronary atherosclerotic disease 4. Acute right orbital floor fracture 5. Diabetes DISCHARGE DX: 1. Syncope 2. Acute myocardial infarction 3. Severe 3-vessel coronary atherosclerotic disease 4. Acute right orbital floor fracture 5. Diabetes 6. Acute blood loss anemia 7. Paroxysmal atrial fibrillation PROCEDURES 10/16/16, Dominick Wells: 1. CABGx4 (BECERRA-LAD, SVG-diag, SVG-circ, SVG-PDA) 2. AtriClip left atrial appendage 3. [facility] COURSE BY PROBLEM LIST 1. Syncope - caused determined to be secondary to severe coronary disease. 2. Acute right orbital floor fracture - seen by Dr. Olivia of [facility]. Pt was offered surgery but decided to consider repair on an outpatient basis as he was asymptomatic. 3. Acute DE/severe CAD - s/p CABGx4. Short use of dopamine used post- operatively for hypotension. Beta-alejandra, aspirin and statin prescribed on discharge for secondary prevention. 4. Paroxysmal atrial fibrillation - conversion to SR with amiodarone and beta- alejandra. Thromboprophylaxis deferred due to short course of arrhythmia. 5. Acute blood loss anemia - stable s/p transfusion of 1 unit of packed cells. 6. Diabetes - HgbA1c of 6.9. Currently diet-controlled with adequate BS while in hospital. Management as per PCP. CONDITION Good DISPOSITION Home, self-care ACTIVITY Pt was instructed on sternal precautions, activity limitations, and which problems to call [facility] with. Please see Discharge Plan in chart for specifics. D/C MEDICATIONS On admission: 1. Fenofibrate Nanocrystallized [Fenofibrate] 145 mg PO HS 10/14/16 [Last Taken 10/13/16] 2. Pravastatin Sodium 20 mg PO HS 10/14/16 [Last Taken 10/13/16] New on discharge: 1. Acetaminophen [Tylenol 325mg (*)] 650 mg PO Q4HRS PRN 2. Amiodarone HCl [Pacerone (*)] 200 mg PO BID #60 3. Aspirin [Aspirin 81mg (*)] 81 mg PO DAILY #30 4. Metoprolol Tartrate [Lopressor 25 mg (*)] 25 mg PO BID #60 5. Triamterene/Hctz 37.5/25 [Dyazide 37.5/25 (*)] 1 each PO DAILY #7 6. traMADol [Ultram 50 mg (*)] 50 - 100 mg PO Q4HRS PRN #30 PENDING STUDIES/LABS 1. CXR prior to surgical follow-up F/U APPOINTMENTS 1. Domincik Wells - 10/29/16, 10:30 AM 2. Gulshan Olivia (ENT) - 4 weeks
== END 2016-10-22 15:10 | disposition home or self-care (01) | DRG 234 ==
LOC: EDBD 11:23 → F3N 14:35 → UNDODISOB 10-15 14:21 → F2W 10-15 15:58 → OBSVTOIN 10-15 17:21 → F2N 10-17 07:42 → F2W 10-19 13:19
PROVIDERS: ADMIT Internal Medicine; ATTEND Internal Medicine
PROC: B2111ZZ Fluoroscopy of Multiple Coronary Arteries using Low Osmolar Contrast (ICD-10-PCS; principal; 2016-10-17 07:15)
PROC: 5A1221Z Performance of Cardiac Output, Continuous (ICD-10-PCS; principal; 2016-10-17 07:15)
PROC: 02100Z9 Bypass Coronary Artery, One Artery from Left Internal Mammary, Open Approach (ICD-10-PCS; principal; 2016-10-17 07:15)
PROC: 021209W Bypass Coronary Artery, Three Arteries from Aorta with Autologous Venous Tissue, Open Approach (ICD-10-PCS; principal; 2016-10-17 07:15)
PROC: 02L70CK Occlusion of Left Atrial Appendage with Extraluminal Device, Open Approach (ICD-10-PCS; principal; 2016-10-17 07:15)
PROC: 06BQ4ZZ Excision of Left Saphenous Vein, Percutaneous Endoscopic Approach (ICD-10-PCS; principal; 2016-10-17 07:15)
PROC: B2151ZZ Fluoroscopy of Left Heart using Low Osmolar Contrast (ICD-10-PCS; 2016-10-17 07:15)
PROC: 4A023N7 Measurement of Cardiac Sampling and Pressure, Left Heart, Percutaneous Approach (ICD-10-PCS; 2016-10-17 07:15)
DX: I21.3 ST elevation (STEMI) myocardial infarction of unspecified site (principal); S02.31XA Fracture of orbital floor, right side, initial encounter for closed fracture; D62 Acute posthemorrhagic anemia; I25.10 Atherosclerotic heart disease of native coronary artery without angina pectoris; E11.9 Type 2 diabetes mellitus without complications; I48.0 Paroxysmal atrial fibrillation; I10 Essential (primary) hypertension; W18.39XA Other fall on same level, initial encounter; Y93.02 Activity, running; E78.5 Hyperlipidemia, unspecified
CPT/HCPCS: 82947-QW; 85520-90; 97116-GP; 97161-GP; 97166-GO; 97530-GP; 97535-GO; A9500; C1760; G0378; G8978-GP-CJ; G8979-GP-CI; G8980-GP-CI; G8987-GO-CK; G8988-GO-CI; G8989-GO-CI; J0153; J0282; J0690; J1265; J1644; J1815; J1940; J2001; J2150; J2250; J2260; J2370; J2405; J2440; J2704; J2720; J2765; J2930; J3010; J7060; P9016; P9041; Q9967

== ENCOUNTER → 2016-10-29 | Outpatient (CLI) | payer OTHER, MEDICARE | LOC: FIMAGING 09:11 | PROVIDERS: ATTEND Physician Assistant Surgical | DX: J90 Pleural effusion, not elsewhere classified (principal); J98.11 Atelectasis; Z95.1 Presence of aortocoronary bypass graft ==